=== PATIENT | male | born 1965 | race Caucasian/White ===

== ENCOUNTER → 2019-05-23 | Outpatient (CLI) | payer OTHER ==
[~2019-05-23] MED LIST: CITA20 PO; LISI20 PO; MULVITMIND PO
== END | disposition home or self-care (01) ==
LOC: PLD 08:10 → LAB SHORT 08:10
DX: C44.722 Squamous cell carcinoma of skin of right lower limb, including hip (principal)
CPT/HCPCS: 88305

== ENCOUNTER 2021-08-19 06:47 | Day surgery (SDC) | payer OTHER ==
[~2021-08-19] VITALS: Ht 188 cm; Wt 90.9 kg
[2021-08-19] MEDS ORDERED: AMLODIPINE-BEN1 EAC4 (07:12)
== END 2021-08-19 08:54 | disposition home or self-care (01) ==
LOC: ORSCSDS 06:47
PROVIDERS: Surgery
PROC: 0DBK8ZX Excision of Ascending Colon, Via Natural or Artificial Opening Endoscopic, Diagnostic (ICD-10-PCS; principal; 2021-08-19 08:00)
DX: Z12.11 Encounter for screening for malignant neoplasm of colon (principal); D12.2 Benign neoplasm of ascending colon; Z86.010 Personal history of colon polyps; Z83.71 Family history of colonic polyps; I10 Essential (primary) hypertension; F41.1 Generalized anxiety disorder; Z79.899 Other long term (current) drug therapy
CPT/HCPCS: 88305; J2704; J7120

== ENCOUNTER 2024-10-11 19:11 | Emergency (ER) | payer OTHER ==
[~2024-10-11] VITALS: Ht 182.9 cm; Wt 83.9 kg
[~2024-10-11 19:11] MED LIST changes: +AMLODIPINE-BEN1 EAC4
[2024-10-11 19:44] VITALS: BP 142/93
== END 2024-10-11 22:05 | disposition home or self-care (01) ==
LOC: ER 19:11
DX: T18.128A Food in esophagus causing other injury, initial encounter (principal); K22.2 Esophageal obstruction; Z88.6 Allergy status to analgesic agent; Z88.5 Allergy status to narcotic agent; Z79.899 Other long term (current) drug therapy; W44.F3XA Food entering into or through a natural orifice, initial encounter
CPT/HCPCS: 70490